=== PATIENT | female | born 1945 | race Caucasian/White ===

== ENCOUNTER 2022-07-27 11:50 | Day surgery (SDC) | payer MEDICARE ==
[2022-07-22 11:48] LABS: EOSINOPHILS # (AUTO) 0.1 X10'3 (0-0.9); EOSINOPHILS % (AUTO) 1.5 % (0-6); HEMOGLOBIN 9.3 g/dl (12.0-16.0); LYMPHOCYTES # (AUTO) 0.6 X10'3 (1.1-4.8); LYMPHOCYTES % (AUTO) 13.7 % (21-51); MEAN CORPUSCULAR HEMOGLOBIN 26.7 PG (27.0-31.0); MEAN CORPUSCULAR HGB CONC 32.2 g/dL (33.0-36.5); MEAN CORPUSCULAR VOLUME 83.1 FL (78-98); MEAN PLATELET VOLUME 9.3 FL (7.4-10.4); MONOCYTES # (AUTO) 0.5 X10'3 (0-0.9); MONOCYTES % (AUTO) 11.2 % (2-12); NEUTROPHILS # (AUTO) 3.1 X10'3 (1.8-7.7); NEUTROPHILS % (AUTO) 72.6 % (42-75); PLATELET COUNT 216 X10'3 (140-440); RED BLOOD COUNT 3.49 X10'6 (4.20-5.60); RED CELL DISTRIBUTION WIDTH 15.8 % (11.5-14.5); WHITE BLOOD COUNT 4.3 X10'3 (4.5-11.0)
[2022-07-22 12:08] LABS: ALBUMIN 2.8 G/DL (3.4-5.0); ANION GAP 9 (8-16); APTT 29 SECONDS (22-32); BLOOD UREA NITROGEN 42 MG/DL (7-18); BUN/CREATININE RATIO 17.1 (6.6-38.0); CALCIUM 8.9 MG/DL (8.5-10.1); CHLORIDE 111 MMOL/L (99-107); CHOL/HDL RATIO 6.1 (0.00-4.99); CHOLESTEROL 146 MG/DL (0-200); CREATININE 2.46 MG/DL (0.40-0.90); GLUCOSE 112 MG/DL (70-104); HDL CHOLESTEROL 24 MG/DL (35-60); LDL CHOLESTEROL 87 MG/DL (50-100); POTASSIUM 4.7 MMOL/L (3.5-5.1); SODIUM 143 MMOL/L (135-145); TOTAL CARBON DIOXIDE 22.9 MMOL/L (24-32); TRIGLYCERIDES 171 MG/DL (20-135); eGFR 19 ML/MIN
[2022-07-27] VITALS (11 sets, daily range): BP systolic 126–207; BP diastolic 50–69
[~2022-07-27] VITALS: Ht 149.9 cm; Wt 72.5 kg
[2022-07-27] MEDS ORDERED: diphenhydrAMINE 25mg capsule PO PRN (12:15)
[2022-07-27] MEDS ORDERED: normal saline 1,000 ML IV SCH (12:15)
[2022-07-27] MEDS ORDERED: LORazepam 0.5 MG tablet PO PRN (12:15)
[2022-07-27] MEDS ORDERED: ACET-812 PO (12:30)
[2022-07-27] MEDS ORDERED: NITR0.4T48 SL (12:30)
[2022-07-27] MEDS ORDERED: HYDR-4070 PO (12:30)
[2022-07-27] MEDS ORDERED: FOLI1TAB27 PO (12:30)
[2022-07-27] MEDS ORDERED: [UNRECOGNIZED DRUG - CODE] SQ (12:30)
[2022-07-27] MEDS ORDERED: FENO145T46 PO (12:30)
[2022-07-27] MEDS ORDERED: SENN-263 PO (12:30)
[2022-07-27] MEDS ORDERED: APIX5TAB3 PO (12:30)
[2022-07-27] MEDS ORDERED: TELM80TA9 (12:30)
[2022-07-27] MEDS ORDERED: ALBU18HF2 INH (12:30)
[2022-07-27] MEDS ORDERED: DULO60CA65 PO (12:30)
[2022-07-27] MEDS ORDERED: CHOL20003 (12:30)
[2022-07-27] MEDS ORDERED: GABA-530 PO (12:30)
[2022-07-27] MEDS ORDERED: CARV6.253 PO (12:30)
[2022-07-27] MEDS ORDERED: DOCU-342 PO (12:30)
[2022-07-27] MEDS ORDERED: ISOS60TA71 PO (12:30)
[2022-07-27] MEDS ORDERED: LIDOcaine 1% (10mg/ml) 2ml vial ONE (14:13)
[2022-07-27] MEDS ORDERED: verapamil 2.5 mg/ml inj IV ONE (14:13)
[2022-07-27] MEDS ORDERED: midazolam 1 mg/ML 2ml injection ONE (14:13)
[2022-07-27] MEDS ORDERED: fentaNYL/PF 50MCG/1 ML 2ML syringe ONE (14:13)
[2022-07-27] MEDS ORDERED: nitroGLYCERIN-Tridil 50MG/D5W 0 ML IV ONE (14:13)
[2022-07-27] MEDS ORDERED: heparin 1,000unit/ml 10ml vial 0 ML ONE (14:13)
[2022-07-27] MEDS ORDERED: iohexol 350MG/ML 100ml bottle IV ONE (14:14)
[2022-07-27] MEDS ORDERED: LIDOcaine 1% 30ml preserv. free vial ONE (14:21)
[2022-07-27] MEDS ORDERED: hydrALAZINE 20mg/ml inj. IV ONE ×2 (15:04→15:24)
[2022-07-27] MEDS ORDERED: hydrALAZINE 25 MG tablet PO SCH (16:03)
[2022-07-27] MEDS ORDERED: isosorbide mononitrate 30mg tab.SR.24H PO SCH (16:04)
[2022-07-27] MEDS ORDERED: HYDROcodone/acetaminophen 5mg/325mg tablet PO PRN (16:05)
[2022-07-27] MEDS ORDERED: HYDROcodone/acetaminophen 10/325mg tab PO PRN (16:05)
== END 2022-07-27 19:19 | disposition home or self-care (01) ==
LOC: SSTAY O 11:50
PROVIDERS: ATTEND Student in an Organized Health Care Education/Training Program
DX: I25.10 Atherosclerotic heart disease of native coronary artery without angina pectoris (principal); I25.82 Chronic total occlusion of coronary artery; I48.91 Unspecified atrial fibrillation; I12.9 Hypertensive chronic kidney disease with stage 1 through stage 4 chronic kidney disease, or unspecified chronic kidney disease; I35.0 Nonrheumatic aortic (valve) stenosis; J43.9 Emphysema, unspecified; K21.9 Gastro-esophageal reflux disease without esophagitis; N18.4 Chronic kidney disease, stage 4 (severe); I73.9 Peripheral vascular disease, unspecified; Z95.1 Presence of aortocoronary bypass graft; G47.33 Obstructive sleep apnea (adult) (pediatric); E78.5 Hyperlipidemia, unspecified; M19.90 Unspecified osteoarthritis, unspecified site; M81.0 Age-related osteoporosis without current pathological fracture; Z88.1 Allergy status to other antibiotic agents; Z88.5 Allergy status to narcotic agent; Z88.6 Allergy status to analgesic agent; Z88.2 Allergy status to sulfonamides; Z88.8 Allergy status to other drugs, medicaments and biological substances; Z91.010 Allergy to peanuts; Z79.51 Long term (current) use of inhaled steroids; Z79.01 Long term (current) use of anticoagulants; Z79.899 Other long term (current) drug therapy
CPT/HCPCS: 36415; 80048; 80061; 85025; 85610; 85730; 93005; 93459; 99152; 99153; C1760; C1769; C1894; J0360; J1644; J2250; J3010; J3490; J7030; Q0163; Q9967

== ENCOUNTER 2022-10-05 11:58 | Day surgery (SDC) | payer MEDICARE ==
[~2022-10-05] VITALS: Ht 149.9 cm; Wt 75.2 kg
[2022-10-05] VITALS (15 sets, daily range): BP systolic 193–205; BP diastolic 58–201
[~2022-10-05 11:58] MED LIST: ACET-812 PO; ALBU18HF2 INH; APIX5TAB3 PO; CARV6.253 PO; CHOL20003; DOCU-342 PO; DULO60CA65 PO; FENO145T46 PO; FOLI1TAB27 PO; GABA-530 PO; HYDR-4070 PO; ISOS60TA71 PO; NITR0.4T48 SL; SENN-263 PO; TELM80TA9; [UNRECOGNIZED DRUG - CODE] SQ
[2022-10-05] MEDS ORDERED: MIDAZolam 1mg/ml 10ml vial IV ONE (12:35)
[2022-10-05] MEDS ORDERED: fentaNYL/PF 50MCG/1 ML 2ML syringe IV ONE ×2 (12:35→13:06)
[2022-10-05] MEDS ORDERED: normal saline 1000ml 1,000 ML IV SCH (12:35)
[2022-10-05] MEDS ORDERED: TIOT18CA3 INH (12:45)
[2022-10-05] MEDS ORDERED: NIFE90TA61 PO (12:45)
[2022-10-05] MEDS ORDERED: BUDE10.22 (12:45)
[2022-10-05] MEDS ORDERED: PANT40TA54 (12:45)
[2022-10-05] MEDS ORDERED: EPOE10006 (12:45)
[2022-10-05] MEDS ORDERED: CETI10TA14 (12:56)
[2022-10-05] MEDS ORDERED: hyDRALAzine 10mg tablet PO ONE (16:10)
[2022-10-05] MEDS ORDERED: hydrALAZINE 25 MG tablet PO ONE (16:15)
== END 2022-10-05 17:30 | disposition home or self-care (01) ==
LOC: SSTAY O 11:58
PROVIDERS: ATTEND Student in an Organized Health Care Education/Training Program
DX: I48.91 Unspecified atrial fibrillation (principal); I08.0 Rheumatic disorders of both mitral and aortic valves; I12.9 Hypertensive chronic kidney disease with stage 1 through stage 4 chronic kidney disease, or unspecified chronic kidney disease; N18.4 Chronic kidney disease, stage 4 (severe); J44.9 Chronic obstructive pulmonary disease, unspecified; G47.33 Obstructive sleep apnea (adult) (pediatric); I25.10 Atherosclerotic heart disease of native coronary artery without angina pectoris; E78.5 Hyperlipidemia, unspecified; K21.9 Gastro-esophageal reflux disease without esophagitis; M19.90 Unspecified osteoarthritis, unspecified site; M81.0 Age-related osteoporosis without current pathological fracture; Z95.1 Presence of aortocoronary bypass graft; Z79.01 Long term (current) use of anticoagulants; Z79.899 Other long term (current) drug therapy; Z88.2 Allergy status to sulfonamides; Z88.8 Allergy status to other drugs, medicaments and biological substances; Z88.5 Allergy status to narcotic agent; Z91.010 Allergy to peanuts; Z88.1 Allergy status to other antibiotic agents
CPT/HCPCS: 82948; 93005; 93312; 93325; 94760; J2250; J3010; J7030; A4620

== ENCOUNTER 2022-11-03 14:05 | Outpatient (CLI) | payer MEDICARE ==
[~2022-11-03 14:05] MED LIST changes: +BUDE10.22 IH; -CHOL20003; +CHOL20003 PO; +DIPH25TA62 PO; -DOCU-342 PO; +DOCU100C40 PO; +EPOE10006 SQ; +FAMO40TA58 PO; +ONDA8TAB13 PO; +PANT40TA54 PO; -TELM80TA9; +TELM80TA9 PO; +TIOT18CA3 INH; -[UNRECOGNIZED DRUG - CODE] SQ
[2022-11-03 14:40] LABS: BASOPHILS % (AUTO) 1.1 % (0-1); EOSINOPHILS % (AUTO) 1.2 % (0-6); HEMATOCRIT 25.8 % (35.0-45.0); HEMOGLOBIN 7.7 g/dl (12.0-16.0); LYMPHOCYTES # (AUTO) 0.5 X10'3 (1.1-4.8); LYMPHOCYTES % (AUTO) 13.3 % (21-51); MEAN CORPUSCULAR HEMOGLOBIN 25.8 PG (27.0-31.0); MEAN CORPUSCULAR VOLUME 85.9 FL (78-98); MEAN PLATELET VOLUME 8.6 FL (7.4-10.4); MONOCYTES # (AUTO) 0.4 X10'3 (0-0.9); MONOCYTES % (AUTO) 12.3 % (2-12); NEUTROPHILS # (AUTO) 2.5 X10'3 (1.8-7.7); NEUTROPHILS % (AUTO) 72.1 % (42-75); PLATELET COUNT 245 X10'3 (140-440); RED CELL DISTRIBUTION WIDTH 16.1 % (11.5-14.5); WHITE BLOOD COUNT 3.4 X10'3 (4.5-11.0)
== END 2022-11-03 23:59 | disposition home or self-care (01) ==
LOC: RAD 14:05
PROVIDERS: ATTEND Student in an Organized Health Care Education/Training Program
DX: Z95.818 Presence of other cardiac implants and grafts (principal); I48.0 Paroxysmal atrial fibrillation
CPT/HCPCS: 36415; 85025

== ENCOUNTER 2022-11-30 12:08 | Day surgery (SDC) | payer MEDICARE ==
[~2022-11-30] VITALS: Ht 149.9 cm; Wt 71.4 kg
[2022-11-30] VITALS (9 sets, daily range): BP systolic 183–199; BP diastolic 62–78
[2022-11-30] MEDS ORDERED: MIDAZolam 1mg/ml 10ml vial IV ONE (12:35)
[2022-11-30] MEDS ORDERED: fentaNYL/PF 50MCG/1 ML 2ML syringe IV ONE (12:35)
[2022-11-30] MEDS ORDERED: normal saline 1000ml 1,000 ML IV SCH (12:35)
[2022-11-30] MEDS ORDERED: APIX5TAB3 PO (12:51)
[2022-11-30 13:32] LABS: BASOPHILS % (AUTO) 1.2 % (0-1); EOSINOPHILS % (AUTO) 0.4 % (0-6); HEMOGLOBIN 7.1 g/dl (12.0-16.0); LYMPHOCYTES # (AUTO) 0.4 X10'3 (1.1-4.8); LYMPHOCYTES % (AUTO) 13.4 % (21-51); MEAN CORPUSCULAR HEMOGLOBIN 23.6 PG (27.0-31.0); MEAN CORPUSCULAR HGB CONC 30.8 g/dL (33.0-36.5); MEAN CORPUSCULAR VOLUME 76.6 FL (78-98); MEAN PLATELET VOLUME 8.8 FL (7.4-10.4); MONOCYTES # (AUTO) 0.4 X10'3 (0-0.9); MONOCYTES % (AUTO) 15.3 % (2-12); NEUTROPHILS # (AUTO) 1.9 X10'3 (1.8-7.7); NEUTROPHILS % (AUTO) 69.7 % (42-75); PLATELET COUNT 133 X10'3 (140-440); RED CELL DISTRIBUTION WIDTH 16.3 % (11.5-14.5); WHITE BLOOD COUNT 2.8 X10'3 (4.5-11.0)
[2022-11-30 13:41] LABS: ALBUMIN 2.6 G/DL (3.4-5.0); ANION GAP 9 (8-16); BLOOD UREA NITROGEN 42 MG/DL (7-18); BUN/CREATININE RATIO 19.1 (10.0-20.0); CALCIUM 8.5 MG/DL (8.5-10.1); CHLORIDE 110 MMOL/L (99-107); GLUCOSE 105 MG/DL (70-104); POTASSIUM 3.8 MMOL/L (3.5-5.1); SODIUM 143 MMOL/L (135-145); TOTAL CARBON DIOXIDE 23.6 MMOL/L (24-32); eGFR 22 ML/MIN
[2022-11-30 14:00] LABS: ANISOCYTOSIS 1+; MICROCYTOSIS 1+; PLATELET ESTIMATE DECREASED; TOTAL CELLS COUNTED 100
[2022-11-30 14:01] LABS: HYPOCHROMASIA 2+
[2022-11-30 14:57] LABS: APTT 31 SECONDS (22-32)
== END 2022-11-30 16:00 | disposition home or self-care (01) ==
LOC: SSTAY O 12:08
PROVIDERS: ATTEND Student in an Organized Health Care Education/Training Program
DX: I48.91 Unspecified atrial fibrillation (principal); Z95.818 Presence of other cardiac implants and grafts; I34.81 Nonrheumatic mitral (valve) annulus calcification
CPT/HCPCS: 36415; 80048; 85025; 85610; 85730; 93312; 93325; 94760; C1751; J2250; J3010; J7030; 85007; A4620

== ENCOUNTER 2023-11-03 17:33 | Inpatient (IN) | payer MEDICARE ==
[~2023-11-03] VITALS: Ht 149.9 cm; Wt 61.4 kg
[~2023-11-03 17:33] MED LIST changes: -HYDR-4070 PO; +HYDR50TA46 PO
[2023-11-03] MEDS: ondansetron/PF 4mg/2ml inj IV ONE (18:00)
[2023-11-03 18:09] LABS: EOSINOPHILS % (AUTO) 1.7 % (0-6); MEAN CORPUSCULAR HGB CONC 31.5 g/dL (33.0-36.5); WHITE BLOOD COUNT 2.5 X10'3 (4.5-11.0)
[2023-11-03 18:12] LABS: BASOPHILS % (AUTO) 1.1 % (0-1); HEMATOCRIT 37.9 % (35.0-45.0); HEMOGLOBIN 11.9 g/dl (12.0-16.0); LYMPHOCYTES # (AUTO) 0.4 X10'3 (1.1-4.8); LYMPHOCYTES % (AUTO) 15.9 % (21-51); MEAN CORPUSCULAR HEMOGLOBIN 24.1 PG (27.0-31.0); MEAN CORPUSCULAR VOLUME 76.6 FL (78-98); MEAN PLATELET VOLUME 9.1 FL (7.4-10.4); MONOCYTES # (AUTO) 0.5 X10'3 (0-0.9); MONOCYTES % (AUTO) 18.7 % (2-12); NEUTROPHILS # (AUTO) 1.6 X10'3 (1.8-7.7); NEUTROPHILS % (AUTO) 62.6 % (42-75); PLATELET COUNT 177 X10'3 (140-440); RED BLOOD COUNT 4.95 X10'6 (4.20-5.60); RED CELL DISTRIBUTION WIDTH 24.9 % (11.5-14.5)
[2023-11-03 18:48] LABS: ALBUMIN 2.7 G/DL (3.4-5.0); ANION GAP 13 (8-16); BLOOD UREA NITROGEN 55 MG/DL (7-18); BUN/CREATININE RATIO 18.8 (10.0-20.0); CALCIUM 8.3 MG/DL (8.5-10.1); CHLORIDE 110 MMOL/L (99-107); CREATININE 2.92 MG/DL (0.40-0.90); POTASSIUM 4.2 MMOL/L (3.5-5.1); PRO BRAIN NATRIURETIC PEPTIDE 14529 PG/ML (0-450); SODIUM 144 MMOL/L (135-145); TOTAL CARBON DIOXIDE 21.1 MMOL/L (24-32); eCRCL 11 ML/MIN; eGFR 16 ML/MIN
[2023-11-03 18:49] LABS: GLUCOSE 208 MG/DL (70-104)
[2023-11-03] MEDS: hydrALAZINE 25 MG tablet PO ONE (20:19)
[2023-11-03] MEDS ORDERED: magnesium 2GM in 50ml NS 50 ML IV PRN (20:20)
[2023-11-03] MEDS ORDERED: acetaminophen 325mg tablet PO PRN (20:20)
[2023-11-03] MEDS ORDERED: magnesium hydroxide 30ml (MOM) UD suspension PO PRN (20:20)
[2023-11-03] MEDS ORDERED: DEXTROSE 15 GM of carb/4 tabs (each vial/BOTTLE has 4 tablets) PO PRN ×2 (20:20)
[2023-11-03] MEDS ORDERED: insulin Lispro (HumaLOG) vial - multi-dose SQ SCH (20:20)
[2023-11-03] MEDS ORDERED: dextrose 50%-water 50ml dispensing syringe IV PRN ×2 (20:20)
[2023-11-03] MEDS ORDERED: ondansetron/PF 4mg/2ml inj IV PRN (20:20)
[2023-11-03] MEDS ORDERED: magnesium 4gm in 100ml NS 100 ML IV PRN (20:20)
[2023-11-03] MEDS ORDERED: mag hydrox/Alum hydrox/simeth 30ml oral suspension PO PRN (20:20)
[2023-11-03] MEDS ORDERED: potassium Cl 40MEQ/1/2NS 520ml 520 ML IV PRN (20:20)
[2023-11-03] MEDS ORDERED: potassium Cl 20 mEq SR tablet PO PRN ×2 (20:20)
[2023-11-03] MEDS ORDERED: glucagon, human recombinant 1mg kit SUBCUT PRN (20:20)
[2023-11-03] MEDS ORDERED: magnesium Cl slow-release 64mg tablet PO PRN (20:20)
[2023-11-03] MEDS ORDERED: insulin regular, human U-100 3ml vial - multi-dose SQ SCH (20:20)
[2023-11-03] MEDS: MESSAGE TO PHARMACY PO ONE (20:25)
[2023-11-03] MEDS ORDERED: CETI10TA14 PO (20:40)
[2023-11-03] MEDS ORDERED: FURO40TA4 PO (20:40)
[2023-11-03] MEDS ORDERED: [UNRECOGNIZED DRUG - CODE] IM (20:40)
[2023-11-03] MEDS ORDERED: TELM40TA8 PO (20:40)
[2023-11-03] MEDS ORDERED: POTA-366 PO (20:40)
[2023-11-03 20:52] LABS: ANISOCYTOSIS 3+; HYPOCHROMASIA 1+; MICROCYTOSIS 1+; PLATELET ESTIMATE NORMAL; TARGET CELLS FEW; TOTAL CELLS COUNTED 100
[2023-11-03 21:00] LABS: MAGNESIUM 2.2 MG/DL (1.5-2.4); POTASSIUM 4.3 MMOL/L (3.5-5.1)
[2023-11-03] MEDS: insulin glargine (Lantus) pen - multi-dose SQ SCH (21:00)
[2023-11-03] MEDS: hydrALAZINE 20mg/ml inj. IV ONE ×2 (22:29→23:22)
[2023-11-04 00:10] VITALS: BP 203/64; PULSE 57; RESP 19; TEMP 98.5; O2SAT 99
[2023-11-04] MEDS: losartan 50mg tablet PO SCH (00:17)
[2023-11-04] MEDS: hydrALAZINE 25 MG tablet PO SCH (00:17)
[2023-11-04 04:51] LABS: BILIRUBIN,URINE NEGATIVE (Neg); CLARITY,URINE SLIGHTLY CLOUDY (Clear); COLOR,URINE YELLOW (Yellow); GLUCOSE, URINE NEGATIVE (Neg); KETONES,URINE NEGATIVE (Neg); LEUKOCYTE ESTERASE ,URINE MODERATE (Neg); NITRITES, URINE NEGATIVE (Neg); OCCULT BLOOD,URINE NEGATIVE (Neg); PROTEIN,URINE TRACE mg/dl (Neg); UROBILINOGEN,URINE 0.2 E.U/dL (0.2-1.0)
[2023-11-04 04:55] LABS: UA COLLECTION TYPE NON-SPECIFIED
[2023-11-04 04:56] LABS: MUCUS STRANDS NONE SEEN /LPF (Neg); SQUAMOUS EPITHELIAL CELL,UR MANY /LPF (FEW)
[2023-11-04 04:57] LABS: BACTERIA,URINE 2+ /HPF (Neg); TRANSITIONAL EPI CELLS,URINE FEW /HPF; WBC CLUMPS,URINE FEW /HPF (NEGATIVE)
[2023-11-04] MEDS: spironolactone 25 MG tablet PO SCH (05:00)
[2023-11-04] MEDS: amLODIPine 5mg tablet PO SCH (05:01)
[2023-11-04 06:00] VITALS: BP 144/57; PULSE 65; RESP 19; TEMP 97.4; O2SAT 95
[2023-11-04 06:45] LABS: BASOPHILS % (AUTO) 1.3 % (0-1); EOSINOPHILS # (AUTO) 0.1 X10'3 (0-0.9); EOSINOPHILS % (AUTO) 1.6 % (0-6); HEMATOCRIT 34.7 % (35.0-45.0); HEMOGLOBIN 10.8 g/dl (12.0-16.0); LYMPHOCYTES # (AUTO) 0.5 X10'3 (1.1-4.8); LYMPHOCYTES % (AUTO) 15.1 % (21-51); MEAN CORPUSCULAR HEMOGLOBIN 23.6 PG (27.0-31.0); MEAN CORPUSCULAR VOLUME 76.2 FL (78-98); MEAN PLATELET VOLUME 8.6 FL (7.4-10.4); MONOCYTES # (AUTO) 0.6 X10'3 (0-0.9); NEUTROPHILS # (AUTO) 2.3 X10'3 (1.8-7.7); PLATELET COUNT 188 X10'3 (140-440); RED BLOOD COUNT 4.56 X10'6 (4.20-5.60); RED CELL DISTRIBUTION WIDTH 25.1 % (11.5-14.5); WHITE BLOOD COUNT 3.5 X10'3 (4.5-11.0)
[2023-11-04 07:01] LABS: APTT 29 SECONDS (22-32); INR 1.2 INR
[2023-11-04 07:38] LABS: ALBUMIN 2.3 G/DL (3.4-5.0); ALBUMIN/GLOBULIN RATIO 0.7 (1.1-1.5); ALKALINE PHOSPHATASE 61 IU/L (46-116); ANION GAP 12 (8-16); ASPARTATE AMINO TRANSFERASE 17 U/L (10-37); BILIRUBIN,TOTAL 0.6 MG/DL (0.1-1.0); BLOOD UREA NITROGEN 59 MG/DL (7-18); CALCIUM 8.3 MG/DL (8.5-10.1); CHLORIDE 111 MMOL/L (99-107); CHOL/HDL RATIO 5.8 (0.00-4.99); CHOLESTEROL 127 MG/DL (0-200); CREATININE 2.95 MG/DL (0.40-0.90); FERRITIN 48 NG/ML (8-252); HDL CHOLESTEROL 22 MG/DL (35-60); LDL CHOLESTEROL 78 MG/DL (50-100); PHOSPHORUS 4.6 MG/DL (2.3-4.5); POTASSIUM 4.3 MMOL/L (3.5-5.1); SODIUM 144 MMOL/L (135-145); TOTAL CARBON DIOXIDE 21.1 MMOL/L (24-32); TOTAL PROTEIN 5.7 G/DL (6.4-8.2); TRIGLYCERIDES 130 MG/DL (20-135); eCRCL 11 ML/MIN; eGFR 15 ML/MIN
[2023-11-04 07:43] LABS: ALANINE AMINOTRANSFERASE < 6 U/L (12-78); GLUCOSE 111 MG/DL (70-104)
[2023-11-04] MEDS ORDERED: amLODIPine 5mg tablet PO ONE (08:00)
[2023-11-04] MEDS ORDERED: K and/or MAG REPLACEMENT MC SCH (08:00)
[2023-11-04] MEDS ORDERED: docusate sod 100mg capsule PO SCH (08:00)
[2023-11-04] MEDS ORDERED: albuterol 2.5 MG/3 ML nebule NEB PRN (08:10)
[2023-11-04 08:13] LABS: ANISOCYTOSIS 3+; HYPOCHROMASIA 1+; MICROCYTOSIS 1+; PLATELET ESTIMATE NORMAL; SMUDGE CELLS 1+; TOTAL CELLS COUNTED 100
[2023-11-04 08:14] LABS: TARGET CELLS FEW
[2023-11-04] MEDS: albuterol 2.5 MG/3 ML nebule NEB SCH (09:00)
[2023-11-04] MEDS: budesonide 0.5mg/2ml UD nebule IH SCH (09:00)
[2023-11-04] MEDS: furosemide 40mg/4ml inj IV SCH (09:32)
[2023-11-04] MEDS: heparin, porcine 5000 units/ml vial SQ SCH (09:33)
[2023-11-04] MEDS: duloxetine 30mg CAPSULE.DR PO SCH (09:44)
[2023-11-04 11:00] VITALS: BP 159/70; PULSE 62; RESP 19; TEMP 97.8; O2SAT 93
[2023-11-04] MEDS ORDERED: NOR5T PO (11:32)
[2023-11-04] MEDS ORDERED: FURO40TA4 PO (11:32)
[2023-11-04] MEDS ORDERED: non-formulary drug (Budesonide/Formoterol Fumarate (Symbicort 80-4.5 Mcg Inhaler) 2 PUFFS) IH SCH (20:00)
[2023-11-04] MEDS ORDERED: gabapentin 100mg capsule PO SCH (21:00)
[2023-11-05] MEDS ORDERED: pantoprazole 40mg Tablet.DR PO SCH (08:00)
[2023-11-05] MEDS ORDERED: non-formulary drug (Famotidine 1 TAB) PO SCH (08:00)
[2023-11-05] MEDS ORDERED: fenofibrate 145mg tablet PO SCH (08:00)
== END 2023-11-04 12:30 | disposition home or self-care (01) | DRG 280 ==
LOC: ER 17:35 → ED HOLD 20:23 → PCU 3S 23:58
PROVIDERS: ADMIT Internal Medicine Critical Care Medicine; ATTEND Internal Medicine
DX: I16.1 Hypertensive emergency (principal); I21.A1 Myocardial infarction type 2; I50.33 Acute on chronic diastolic (congestive) heart failure; N18.4 Chronic kidney disease, stage 4 (severe); I13.0 Hypertensive heart and chronic kidney disease with heart failure and stage 1 through stage 4 chronic kidney disease, or unspecified chronic kidney disease; G47.30 Sleep apnea, unspecified; D72.819 Decreased white blood cell count, unspecified; I48.91 Unspecified atrial fibrillation; E78.5 Hyperlipidemia, unspecified; M79.7 Fibromyalgia; E11.22 Type 2 diabetes mellitus with diabetic chronic kidney disease; J44.9 Chronic obstructive pulmonary disease, unspecified; Z95.1 Presence of aortocoronary bypass graft; I25.2 Old myocardial infarction; Z88.2 Allergy status to sulfonamides; Z88.8 Allergy status to other drugs, medicaments and biological substances; Z88.6 Allergy status to analgesic agent; Z88.1 Allergy status to other antibiotic agents; Z88.5 Allergy status to narcotic agent; Z91.010 Allergy to peanuts; Z79.01 Long term (current) use of anticoagulants; Z79.899 Other long term (current) drug therapy
CPT/HCPCS: 36415; 70450; 71045; 80048; 80053; 80061; 81001; 82728; 82948; 83036; 83540; 83735; 83880; 84100; 84132; 84466; 84484; 85007; 85025; 85610; 85730; 87081; 87088; 93005; 93306; 93971; 99285; G0378; J0360; J1644; J1940

== ENCOUNTER 2025-01-31 20:06 | Inpatient (IN) | payer MEDICARE ==
[~2025-01-31] VITALS: Ht 149.9 cm; Wt 70.0 kg
[~2025-01-31 20:06] MED LIST changes: -ACET-812 PO; -ALBU18HF2 INH; +AMLO10TA13 PO; -APIX5TAB3 PO; +ASPI81TA52 PO; +ATOR20TA PO; -BUDE10.22 IH; -CARV6.253 PO; -DIPH25TA62 PO; -DOCU100C40 PO; -DULO60CA65 PO; -EPOE10006 SQ; +HYDR100T12 PO; -HYDR50TA46 PO; +METO-395 PO; -NITR0.4T48 SL; -ONDA8TAB13 PO; -PANT40TA54 PO; -SENN-263 PO; -TELM80TA9 PO; -TIOT18CA3 INH
--- NOTE | 2025-01-31 20:17 | ELECTROCARDIOGRAPH REPORT ---
[facility] Test Date: 2025-01-31 Test Time: 20:07:52 Pat Name: ANGELICA JUSTICE Department: EMERGENCY ROOM Room: Gender: F Pattern Cutter: : 1945 Requested By: MALATHI COOPER Order Number: [id number] Reading MD: Measurements Intervals [place] Rate: 67 P: 174 MT: 220 QRS: 44 QRSD: 87 T: 125 QT: 410 QTc: 433 Interpretive Statements Sinus or ectopic atrial rhythm Prolonged MT interval Repol abnrm suggests ischemia, lateral leads Minimal ST elevation, inferior leads Please click the below link to view image of tracing.
--- NOTE | 2025-01-31 20:34 | Physician Documentation ---
History of Present Illness ~ Chief Complaint: Chest Pain Stated Complaint: CHEST PAIN Time Seen by MD: 20:29 Primary Medical Doctor: Todd alcantar MD Source: patient Mode of Arrival: POV Exam Limitations: no limitations HPI Patient with a history of 3 heart attacks, 4-6 cardiac stents and 4 vessel bypass in with chest pain for the last 3 days. She states it is on her left side and wraps under her left breast and goes into her back. She states it feels like there is a band around her chest. She rates it 8/10. It is intermittent. When it comes on it lasts for 30-60 minutes. She states most of her cardiology problems were several years ago. Her CABG was in 2008. Last echocardiogram was 2 years ago. She states it hurts to take a deep breath. She feels nauseous. She takes aspirin every day but did not take any today. Also has a history of heart failure for which she takes Lasix 20 mg daily. No history of smoking, drug or alcohol use. She does have diabetes and gets dialysis. Last dialysis was yesterday on Tuesday. History of AFib. Medication Reconciliation Allergies: Coded Allergies: JERRY Inhibitors (Verified Allergy, Unknown, 01/31/25) azithromycin (Verified Allergy, Unknown, 01/31/25) clarithromycin (Verified Allergy, Unknown, 01/31/25) gemfibrozil (Verified Allergy, Unknown, 01/31/25) hydrocodone (Verified Allergy, Unknown, PASSES OUT, 01/31/25) inositol (Verified Allergy, Unknown, 01/31/25) meperidine (Verified Allergy, Unknown, 07/27/22) niacin (Verified Allergy, Unknown, 07/27/22) nitrofurantoin (Verified Allergy, Unknown, 07/27/22) oxycodone (Verified Allergy, Unknown, 07/27/22) peanut (Verified Allergy, Unknown, 07/27/22) phenobarbital (Verified Allergy, Unknown, 07/27/22) polyethylene glycol (Verified Allergy, Unknown, 07/27/22) potassium (Verified Allergy, Unknown, 07/27/22) propoxyphene (Verified Allergy, Unknown, 07/27/22) sulfanilamide (Verified Allergy, Unknown, 07/27/22) tramadol (Verified Allergy, Unknown, 07/27/22) NSAIDS (Non-Steroidal Anti-Inflamma (Verified Adverse Reaction, Unknown, DOES NOT FEEL WELL, 10/20/22) amoxicillin (Verified Adverse Reaction, Unknown, DIARRHEA, 10/20/22) cimetidine (Verified Adverse Reaction, Unknown, 10/20/22) PT CAN TAKE FAMOTIDINE AND ALREADY TAKES IT AT HOME Scheduled Amlodipine Besylate (Amlodipine Besylate), 1 TAB PO DAILY, (Reported) Aspirin (Aspirin EC), 1 TAB PO DAILY, (Reported) Atorvastatin Calcium* (Lipitor*), 1 TAB PO DAILY, (Reported) Cholecalciferol (Vitamin D3) (Vitamin D3), 1 TAB PO DAILY, (Reported) Famotidine (Famotidine), 1 TAB PO DAILY, (Reported) Fenofibrate Nanocrystallized (Tricor), 1 TAB PO DAILY, (Reported) Folic Acid* (Folic Acid*), 1 MG PO DAILY, (Reported) Gabapentin (Gabapentin), 1 CAP PO HS, (Reported) Hydralazine HCl (Hydralazine HCl), 1 TAB PO BID, (Reported) Isosorbide Mononitrate (Isosorbide Mononitrate Er), 1 TAB PO BID, (Reported) Metoprolol Succinate (Metoprolol Succinate), 25 MG PO DAILY Past Medical History Past Medical History: Atrial Fibrillation, Coronary Artery Disease, Congestive Heart Failure, Hypertension, Myocardial Infarction, Asthma, COPD, Sleep Apnea, GERD, Renal Disease, Diabetes, Chronic Pain, Fibromyalgia Past Surgical History: coronary bypass surgery, other Other Past Surgical History: stents Patient History: FH: stroke Alcohol Use: None Drug Use: none Lives with: Family Lives In: Home Review of Systems All Other Systems at this time: Reviewed and Negative Physical Exam Vital Signs: Temperature: 98.6, Source: Temporal, Heart Rate: 70, Respiratory Rate: 15, BP: 145/65, Pulse Oximetry: 96, Weight: 70.000 Physical Exam General: Alert and oriented x4, well-appearing, well-nourished, no acute distress HEENT: Normocephalic, atraumatic, no visible or palpable masses or depression, extraocular movements intact, PERRLA, no scleral icterus, neck is supple and nontender, mucous membranes moist Heart: Regular rate and rhythm, no murmurs, rubs or gallops Lungs: Clear to auscultation bilaterally, normal work of breathing Abdomen: Soft, nontender, no palpable masses, normal bowel sounds Back: Spine is without deformity or tenderness, no CVA tenderness Extremities: Full range of motion, no acute deformity, peripheral pulses intact, no cyanosis or edema Musculoskeletal: Normal gait, normal tone Neurologic: Cranial nerves 2-12 are intact, reflexes normal Psychiatric: Alert and oriented x4, judgment and insight normal, normal mood and affect Skin: Good turgor, no rashes Progress Results/Orders Results/Orders Orders - MALATHI COOPER MD Chest,Single View (01/31/25 20:16) Monitor (01/31/25 20:16) Saline Lock (01/31/25 20:16) Oxygen (01/31/25 20:16) Hs Troponin I W Calculations (01/31/25 22:16) Hs Troponin I W Calculations (01/31/25 23:16) Nitroglycerin Sublingual Tab (Nitrostat (01/31/25 20:40) Completed Orders - MALATHI COOPER MD Chest,Single View (01/31/25 20:16) Cbc/Diff (01/31/25 20:16) BMP (01/31/25 20:16) PBNP (01/31/25 20:16) Electrocardiogram (01/31/25 20:16) Hs Troponin I W Calculations (01/31/25 20:16) Aspirin 81mg Chew Tablet (Aspirin 81mg C (01/31/25 20:30) Lidocaine 1% 30ml Vial (Xylocaine 1% Via (01/31/25 20:52) Midazolam 1 Mg/Ml 2ml Inj. (Versed 1 Mg/ (01/31/25 20:52) Fentanyl/Pf (Fentanyl 0.05 Mg/Ml Syringe (01/31/25 20:52) Iohexol 350mg/Ml 50ml Inj (Omnipaque 350 (01/31/25 20:52) Heparin 1,000unit/Ml 10ml Vial (Heparin (01/31/25 20:52) Iohexol 350mg/Ml 100ml (Omnipaque 350mg/ (01/31/25 20:53) Heparin 1,000 Units/Ns 500ml (Heparin 1, (01/31/25 20:53) Midazolam 1 Mg/Ml 2ml Inj. (Versed 1 Mg/ (01/31/25 21:18) Iohexol 350mg/Ml 100ml (Omnipaque 350mg/ (01/31/25 21:18) Hydralazine Inj. (Apresoline Inj.) (01/31/25 21:25) Nitroglycerin 500mcg/5ml D5w (Nitroglyce (01/31/25 21:25) Nitroglycerin-Tridil 50mg/D5w (Tridil (N (01/31/25 21:43) Medications Received in ER Medications (Trade) Dose Ordered Sig/Ricardo Route PRN Reason Start Time Stop Time Status Last Admin Dose Admin (aspirin 81MG chew tablet) 324 mg ONCE ONCE PO 01/31/25 20:30 01/31/25 20:31 DC 01/31/25 20:39 324 MG Vital Signs 01/31/25 20:13 Temp 98.6 Pulse 70 Resp 15 B/P (MAP) 145/65 Pulse Ox 96 Laboratory Tests Test 01/31/25 20:34 White Blood Count 7.1 Red Blood Count 5.50 Hemoglobin 15.3 Hematocrit 45.8 H Mean Corpuscular Volume 83.2 Mean Corpuscular Hemoglobin 27.9 Mean Corpuscular Hemoglobin Concent 33.5 Red Cell Distribution Width 15.9 H Platelet Count 197 Mean Platelet Volume 7.6 Neutrophils (%) (Auto) 72.0 Lymphocytes (%) (Auto) 10.8 L Monocytes (%) (Auto) 15.4 H Eosinophils (%) (Auto) 1.3 Basophils (%) (Auto) 0.5 Neutrophils # (Auto) 5.1 Lymphocytes # (Auto) 0.8 L Monocytes # (Auto) 1.1 H Eosinophils # (Auto) 0.1 Basophils # (Auto) 0.0 CBC Comment Sodium Level 139 Potassium Level 5.2 H Chloride Level 99 Carbon Dioxide Level 29.1 Anion Gap 11 Blood Urea Nitrogen 48 H Creatinine 4.85 H Estimated GFR/1.73 m2 9 BUN/Creatinine Ratio 9.9 L Glucose Level 137 H Calcium Level 9.2 Troponin I High Sensitivity 79 *H Pro-B-Type Natriuretic Peptide 7192 H Albumin 3.2 L Chemistry Comments Medical Decision Making Additional Information Differential includes but isn't limited to: Myocardial infarction, pneumonia, pneumothorax, tamponade, dissection, GERD, pleurisy, costochondritis Departure Admitted to Inpatient Unit: yes, to chief librarian music department Admission Level of Care: PCU with Tele Impression: Primary Impression: Acute coronary syndrome Additional Impression Text EKG: Sinus rhythm, rate of 67, ST-elevation in lead 3, questionable elevation AVF, QTC 433, T-wave inversion aVL Patient in with chest pain for several days. Significant cardiac history. EKG concerning for possible ST-elevation. Lead [address] elevation and AVF is borderline elevated. No prior EKG for comparison. Initial troponin came back elevated. Patient does get dialysis so this is in the setting of elevated creatinine. Given her history patient was taken directly to the optical lab technician. Given aspirin in the ED prior to optical lab technician. Admitted under Dr. Rondon. Patient was stable on admission. Condition: Stable Referrals: NO PRIMARY CARE PROVIDER (PCP) Signature Scribe Signature: No scribe Attestation: No scribe MALATHI COOPER MD Jan 31, 2025 20:34
[2025-01-31] MEDS: aspirin 81mg tab.chew PO ONE (20:39)
[2025-01-31] MEDS ORDERED: nitroGLYCERIN 0.4mg SUBLingual tab SL PRN (20:40)
[2025-01-31 20:49] LABS: BASOPHILS % (AUTO) 0.5 % (0-1); EOSINOPHILS # (AUTO) 0.1 X10'3 (0-0.9); EOSINOPHILS % (AUTO) 1.3 % (0-6); HEMATOCRIT 45.8 % (35.0-45.0); HEMOGLOBIN 15.3 g/dl (12.0-16.0); LYMPHOCYTES # (AUTO) 0.8 X10'3 (1.1-4.8); LYMPHOCYTES % (AUTO) 10.8 % (21-51); MEAN CORPUSCULAR HEMOGLOBIN 27.9 PG (27.0-31.0); MEAN CORPUSCULAR HGB CONC 33.5 g/dL (33.0-36.5); MEAN CORPUSCULAR VOLUME 83.2 FL (78-98); MEAN PLATELET VOLUME 7.6 FL (7.4-10.4); MONOCYTES # (AUTO) 1.1 X10'3 (0-0.9); MONOCYTES % (AUTO) 15.4 % (2-12); NEUTROPHILS # (AUTO) 5.1 X10'3 (1.8-7.7); PLATELET COUNT 197 X10'3 (140-440); RED CELL DISTRIBUTION WIDTH 15.9 % (11.5-14.5); WHITE BLOOD COUNT 7.1 X10'3 (4.5-11.0)
[2025-01-31] MEDS ORDERED: heparin 1,000unit/ml 10ml vial 10 ML ONE (20:52)
[2025-01-31] MEDS ORDERED: iohexol 350 MG/ML 50ML vial IV ONE (20:52)
[2025-01-31] MEDS ORDERED: fentaNYL/PF 50MCG/1 ML 2ML syringe ONE (20:52)
[2025-01-31] MEDS ORDERED: LIDOcaine 1% 30ml preserv. free vial ONE (20:52)
[2025-01-31] MEDS ORDERED: midazolam 1 mg/ML 2ml injection ONE ×2 (20:52→21:18)
[2025-01-31] MEDS ORDERED: iohexol 350MG/ML 100ml bottle IV ONE ×2 (20:53→21:18)
[2025-01-31 21:04] LABS: ALBUMIN 3.2 G/DL (3.4-5.0); ANION GAP 11 (8-16); BLOOD UREA NITROGEN 48 MG/DL (7-18); BUN/CREATININE RATIO 9.9 (10.0-20.0); CALCIUM 9.2 MG/DL (8.5-10.1); CHLORIDE 99 MMOL/L (99-107); CREATININE 4.85 MG/DL (0.40-0.90); POTASSIUM 5.2 MMOL/L (3.5-5.1); PRO BRAIN NATRIURETIC PEPTIDE 7192 PG/ML (0-450); SODIUM 139 MMOL/L (135-145); TOTAL CARBON DIOXIDE 29.1 MMOL/L (24-32); eCRCL 7 ML/MIN; eGFR 9 ML/MIN
[2025-01-31 21:07] LABS: GLUCOSE 137 MG/DL (70-104)
--- NOTE | 2025-01-31 21:13 | RADIOLOGY REPORT ---
EXAM: DI CHEST,SINGLE VIEW TECHNIQUE: Single frontal chest radiograph CLINICAL HISTORY: CP COMPARISON: DI CHEST,SINGLE VIEW on DOS: 07/02/24, DI CHEST,SINGLE VIEW on DOS: 02/12/24, DI CHEST,SIN GLE VIEW on DOS: 01/29/24 Findings/Impression: Frontal chest radiograph demonstrates no acute osseous or superficial soft tissue abnormalities. Tunneled right-sided HD catheter terminates near the superior cavoatrial junction. The trachea is midline. Cardiomegaly with pulmonary vascular congestion. No pneumothorax, pleural effusions, or consolidations.
[2025-01-31] MEDS ORDERED: nitroGLYCERIN 500mcg/5mL D5W 0 ML IV ONE (21:25)
[2025-01-31] MEDS ORDERED: hydrALAZINE 20mg/ml inj. ONE (21:25)
[2025-01-31] MEDS ORDERED: nitroGLYCERIN-Tridil 50MG/D5W 250 ML IV ONE (21:43)
--- NOTE | 2025-01-31 21:45 | HISTORY AND PHYSICAL ---
ADMIT DATE: 01/31/2025 DICTATING PHYSICIAN: LUIS MARIANO DO CHIEF COMPLAINT: Chest pain. HISTORY OF PRESENT ILLNESS: This 79-year-old woman has a known history of coronary artery disease. She is status post four-vessel CABG in late 09/2008. The surgery was performed at [facility] by Dr. Ba. In 09/2022, she presented to [facility] with chest pain, thought to represent a myocardial infarction. She was transferred to [facility] in [place] and was there for a week, but says that she did not have any diagnostic angiography or percutaneous intervention. This evening, she presented to the emergency room with recurring left chest pain that has been present, although intermittently since 01/28/2025. She describes a sharp or pressure pain beneath the left breast that radiates through to the back. At the present time, she is still complaining of chest discomfort and she has ECG changes that are somewhat equivocal, but strongly suggestive of coronary ischemia. PAST MEDICAL HISTORY: She has a large list of allergies, which is going to be detailed separately. She also has a long medical list, which is also detailed separately. Previous surgeries include low back procedure, cholecystectomy, BRANT and BSO, with incidental appendectomy and tonsillectomy as a child. Other medical problems include a greater than 20-year history of diabetes. She has chronic kidney disease to the point that she has been receiving hemodialysis for 3 months. She has had 3 separate episodes of pancreatitis. There is a longstanding history of reactive airways disease. SOCIAL HISTORY: Never been a smoker and does not consume alcoholic beverages. FAMILY HISTORY: Mother at age 83 from heart disease and pulmonary embolism post bypass surgery. Father at age 63 from heart disease. A sister at age 45 from a myocardial infarction and a niece at age 52 from an [place]. REVIEW OF SYSTEMS: Otherwise unremarkable. PHYSICAL EXAMINATION: VITAL SIGNS: Blood pressure is 138/86, heart rate was 70. GENERAL: The patient was an alert, cooperative woman who did not seem to be in marked discomfort. She was an excellent historian. HEENT: Pupils reactive to light. Extraocular muscles intact. NECK: No JVD. No carotid bruits. CHEST: On examination of the chest, both lung nugent were clear. CARDIAC: Apical impulse not displaced. First and second heart sounds single. There is a grade 2/6 systolic ejection murmur best heard at the right upper sternal border. No gallops. ABDOMEN: Soft and nontender. EXTREMITIES: No edema. Foot pulses are difficult to palpate. There is a temporary dialysis catheter in the right jugular venous system. ECG demonstrates sinus rhythm with first-degree AV block. There were nonspecific ST-T changes with T inversion in leads 1 in AVL. There was slight ST elevation in leads 3 and AVF, but the ST-T segments were not coved upward segments. No ectopy. ASSESSMENT: * Chest pain of uncertain etiology but quite possibly angina in a patient with known long history of ischemic heart disease. * Status post 4-vessel CABG in 2008. Other medical problems include chronic kidney disease on dialysis, history of recurrent pancreatitis, degenerative joint disease, and diabetes known for more than 20 years. RECOMMENDATION: Cardiac catheterization. She is very familiar with the procedure, having had it done for multiple occasions before today. Nevertheless, I reviewed the risks and benefits and she agreed to proceed. LUIS MARIANO DO TID: [id number] RECEIPT: [id number] JOHN/LULY/YANELY MTDD
[2025-01-31 22:15] VITALS: BP 130/56; PULSE 90; RESP 17
[2025-01-31 22:45] VITALS: BP 146/57; PULSE 88; RESP 20
[2025-01-31 23:00] VITALS: BP 146/57; PULSE 89; RESP 22
--- NOTE | 2025-01-31 23:00 | CARDIOLOGY REPORT ---
DATE OF SERVICE: 01/31/2025 DICTATING PHYSICIAN: LUIS MARIANO DO CARDIAC CATHETERIZATION REPORT REFERRING PHYSICIAN: Luis Mariano DO CLINICAL HISTORY: This 79-year-old woman presented to the Emergency Room with complaints of off and on chest pain beginning on 01/28/2025. Pain is localized under the left breast with radiation to the back. Symptoms occur at random and are not necessarily associated with exertion. The patient has a long history of coronary disease with a prior 4-vessel bypass surgery in 09/2008. She also thinks that she had a myocardial infarction in 09/2022. She was worked up for the problem at [facility] in [place] but did not have a cardiac catheterization. The patient says that she has had many cardiac catheterization procedures and her subsequent angiography has demonstrated extensive stenting in multiple areas. Her initial troponin was 79, which is considered inconsequential. Nevertheless, because of her history and equivocal changes on the ECG, a cardiac catheterization was performed. PROCEDURES PERFORMED: * Left heart catheterization * Left ventriculography * Selective coronary arteriography. * Selective opacification of bypass grafts. * Percutaneous arteriotomy closure (Mynx) in 45 minutes conscious sedation and supervision. DESCRIPTION OF PROCEDURE: The patient was sedated with Fentanyl and Versed. She was then prepared and draped in the usual manner. Using a Seldinger technique, a 7-Dominican sheath was placed in the right common femoral artery. 3,000 units of heparin were given. Left heart catheterization and left ventriculography were performed using a 6-Dominican pigtail catheter. Coronary arteriography was performed using 6-Dominican #4 left and right Adelina catheters. All saphenous vein grafts were opacified using the #4 right Adelina catheter. There was a protracted effort to enter the left subclavian artery with the #4 right Adelina catheter but efforts were repeatedly unsuccessful. Multiple flush injections did not demonstrate any flow into the subclavian artery. The arterial access site was successfully closed with a Mynx device. RESULTS: HEMODYNAMIC DATA: The left ventricular end diastolic pressure was 15 mmHg. There was no gradient across the aortic valve. LEFT VENTRICULOGRAM: The left ventriculogram was technically satisfactory. The estimated LVEF was at least 75%. Stents were visible in the proximal LAD and in the circumflex and right coronary arteries. This patient also has a Watchman in place. CORONARY ARTERIOGRAPHY: The coronary arteriograms are technically satisfactory. The patient appears to have a right dominant system. LEFT MAIN CORONARY ARTERY: The left main was a large vessel narrowed by about 20% to 30% before trifurcating into left anterior descending, intermediate and circumflex coronary arteries. LEFT ANTERIOR DESCENDING CORONARY ARTERY: The LAD was a small to medium-sized vessel that did not appear to have a transapical distribution. A stent was visible in the proximal vessel. In the mid vessel, there was a 95% stenosis. A large bifurcated diagonal was then tented up and the remains of a previous bypass graft were partially filled. There was a very short segment of the mid LAD that exhibited phasic flow due to the presence of a known SHEEHAN graft. INTERMEDIATE ARTERY: The intermediate artery was a medium-sized unobstructed vessel. CIRCUMFLEX CORONARY ARTERY: The circumflex appeared to be a large vessel. It was functionally occluded but jump collaterals provided filling of the more distal circumflex, which was composed of a medium-sized bifurcated obtuse marginal and a small posterior descending branch. The obtuse marginal was tented up reflecting a previous anastomosis to a saphenous vein graft. RIGHT CORONARY ARTERY: The right coronary was a small to medium-sized vessel that was totally occluded proximally just after the takeoff of acute marginal branch. SELECTIVE OPACIFICATION OF BYPASS GRAFTS: 2 saphenous vein grafts leading to the left coronary system were occluded. These were to the principal LAD diagonal and to the LCX OMB. A saphenous vein graft leading to the right coronary is patent and appear to be narrowed by about 40% but most likely it is normal in size as the segment in question is proceeded by an area of ectasia in the vein. The SVG was anastomosed very close to the posterior descending branch which was a medium to large vessel. The distal right coronary was composed of 2 small posterolateral branches. There was a protracted effort to opacify the left internal mammary graft but consistent efforts were unsuccessful in getting into the left subclavian artery. The area around the subclavian artery ostium is heavily calcified. A left heart catheterization last performed in 2022 was reviewed. That study demonstrated no appreciable change in the findings from this study. The saphenous vein graft status was exactly the same. There was opacification of the left internal mammary artery which was large and widely patent. . CONCLUSIONS: 1. Obstructive coronary artery disease, principally manifested as follows: A. 90% to 95% stenosis mid LAD. B. 100% functional occlusion of the circumflex coronary artery. C. Occluded proximal right coronary artery. 2. Bypass graft status as follows: Saphenous vein graft leading to what appeared to be a diagonal branch of the LAD is occluded. Another saphenous vein graft to a circumflex marginal branch is occluded. Saphenous vein graft leading to the distal right coronary is patent and not unobstructed. 3. Left internal mammary graft was not seen at this time but was found to be patent in 2022. Absence of an anteroseptal wall motion abnormality and pusatile flow in the mild LAD militate in favor of SHEEHAN patency. 4. Left ventricular function was normal. LVEF was at least 75%. RECOMMENDATIONS: Recommendation is ongoing medical therapy with management of hypertension, which was not controlled at the time of her presentation. She will have serial cardiac enzymes; but at the present time, this patient does not appear to be a STEMI patient and it is believed that there is no significant change in her coronary and graft status from a previous study in 2022. LUIS MARIANO DO TID: [id number] RECEIPT: [id number] RP/SKYE cc: Roman Calderon MD MTDShoshana
[2025-01-31 23:30] VITALS: BP 123/58; PULSE 89; RESP 22
[2025-02-01] VITALS (9 sets, daily range): BP systolic 121–150; BP diastolic 56–78; PULSE 66–94; RESP 18–28; TEMP 97.3–98.8; O2SAT 97–98
[2025-02-01] MEDS ORDERED: TRAM50TA2 PO (00:20)
[2025-02-01] MEDS ORDERED: TRAZ-251 PO (00:20)
[2025-02-01] MEDS ORDERED: normal saline 1000ml 1,000 ML IV SCH (06:50)
[2025-02-01] MEDS ORDERED: ondansetron/PF 4mg/2ml inj IV PRN (06:50)
[2025-02-01] MEDS ORDERED: proCHLORperazine 10 MG/2 ml inj IV PRN (06:55)
[2025-02-01] MEDS: nitroGLYCERIN-Tridil 50MG/D5W 250 ML IV SCH ×2 (07:05)
[2025-02-01] MEDS ORDERED: aspirin 81mg tab.chew ONE (08:00)
[2025-02-01 08:01] LABS: BASOPHILS # (AUTO) 0.1 X10'3 (0-0.2); BASOPHILS % (AUTO) 0.9 % (0-1); EOSINOPHILS # (AUTO) 0.1 X10'3 (0-0.9); EOSINOPHILS % (AUTO) 0.9 % (0-6); HEMATOCRIT 42.6 % (35.0-45.0); HEMOGLOBIN 14.2 g/dl (12.0-16.0); LYMPHOCYTES # (AUTO) 0.7 X10'3 (1.1-4.8); LYMPHOCYTES % (AUTO) 10.3 % (21-51); MEAN CORPUSCULAR HEMOGLOBIN 27.7 PG (27.0-31.0); MEAN CORPUSCULAR HGB CONC 33.5 g/dL (33.0-36.5); MEAN CORPUSCULAR VOLUME 82.8 FL (78-98); MEAN PLATELET VOLUME 7.3 FL (7.4-10.4); MONOCYTES % (AUTO) 15.3 % (2-12); NEUTROPHILS # (AUTO) 4.9 X10'3 (1.8-7.7); NEUTROPHILS % (AUTO) 72.6 % (42-75); PLATELET COUNT 200 X10'3 (140-440); RED BLOOD COUNT 5.14 X10'6 (4.20-5.60); RED CELL DISTRIBUTION WIDTH 16.6 % (11.5-14.5); WHITE BLOOD COUNT 6.7 X10'3 (4.5-11.0)
[2025-02-01 08:14] LABS: ALANINE AMINOTRANSFERASE 12 U/L (12-78); ALBUMIN 2.7 G/DL (3.4-5.0); ALBUMIN/GLOBULIN RATIO 0.8 (1.1-1.5); ALKALINE PHOSPHATASE 136 IU/L (46-116); ANION GAP 11 (8-16); ASPARTATE AMINO TRANSFERASE 21 U/L (10-37); BILIRUBIN,TOTAL 0.6 MG/DL (0.1-1.0); BLOOD UREA NITROGEN 47 MG/DL (7-18); BUN/CREATININE RATIO 9.4 (10.0-20.0); CALCIUM 8.7 MG/DL (8.5-10.1); CHLORIDE 101 MMOL/L (99-107); CREATININE 5.02 MG/DL (0.40-0.90); POTASSIUM 5.2 MMOL/L (3.5-5.1); SODIUM 136 MMOL/L (135-145); TOTAL CARBON DIOXIDE 24.3 MMOL/L (24-32); TOTAL PROTEIN 6.3 G/DL (6.4-8.2); eCRCL 6 ML/MIN; eGFR 8 ML/MIN
[2025-02-01 08:18] LABS: GLUCOSE 126 MG/DL (70-104)
[2025-02-01 08:46] LABS: CHOL/HDL RATIO 2.4 (0.00-4.99); CHOLESTEROL 90 MG/DL (0-200); HDL CHOLESTEROL 37 MG/DL (35-60); LDL CHOLESTEROL 30 MG/DL (50-100); TRIGLYCERIDES 142 MG/DL (20-135)
[2025-02-01] MEDS: amLODIPine 5mg tablet PO SCH (08:53)
[2025-02-01] MEDS: aspirin 81mg, enteric-coated 1 TAB TABLET.DR PO SCH (08:54)
[2025-02-01] MEDS: cholecalciferol (vitamin D3) 1,000 unit (25mcg) tablet PO SCH (08:54)
[2025-02-01] MEDS: atorvastatin 20mg tablet PO SCH (08:54)
[2025-02-01] MEDS: famotidine 20mg tablet PO SCH (09:18)
[2025-02-01] MEDS: fenofibrate 145mg tablet PO SCH (09:18)
[2025-02-01] MEDS: folic acid 1mg tablet PO SCH (09:18)
[2025-02-01] MEDS ORDERED: PHO667C PO (10:18)
[2025-02-01] MEDS ORDERED: DULO30CA52 PO (10:19)
[2025-02-01] MEDS ORDERED: CARV3.122 PO (10:22)
[2025-02-01] MEDS: acetaminophen 325mg tablet PO PRN (11:21)
[2025-02-01] MEDS ORDERED: famotidine 20mg tablet PO SCH (12:25)
[2025-02-01] MEDS ORDERED: FURO-150 PO (13:20)
[2025-02-01] MEDS ORDERED: ISOS30TA84 PO (13:20)
[2025-02-01] MEDS ORDERED: CYAN100087 PO (13:34)
--- NOTE | 2025-02-01 14:25 | PROGRESS NOTE ---
Progress Note Cardiology Providers to CC ~ Subjective Subjective No more chest pain Objective Result Diagram: 02/01/25 0744 02/01/25 0744 Objective Normotensive Peak troponin was 166 (.166) Cardiac cath last night showed totally normal, hyperdynamic contractility with no regional abnrmalities. CAD and graft status was the same as in 2022. Grafts to the principal diagonal and the only OMB are occluded. These graft failures and HTN are probably responsible for her "enzyme leak" type II SD SHE DID NOT HAVE A STEMI. Problem\\Assessment\\Plan Additional Plan Plan: home today dialysis LUIS MARIANO DO Feb 01, 2025 14:25
[2025-02-01] MEDS ORDERED: isosorbide mononitrate 30mg tab.SR.24H PO SCH (20:00)
[2025-02-01] MEDS ORDERED: gabapentin 100mg capsule PO SCH (21:00)
== END 2025-02-01 17:23 | disposition home or self-care (01) | DRG 280 ==
LOC: ER 20:07 → PCU 3S 22:13
PROVIDERS: ADMIT Internal Medicine Cardiovascular Disease; ATTEND Internal Medicine Cardiovascular Disease
PROC: 4A023N7 Measurement of Cardiac Sampling and Pressure, Left Heart, Percutaneous Approach (ICD-10-PCS; principal; 2025-01-31)
PROC: B2111ZZ Fluoroscopy of Multiple Coronary Arteries using Low Osmolar Contrast (ICD-10-PCS; 2025-01-31)
PROC: B2151ZZ Fluoroscopy of Left Heart using Low Osmolar Contrast (ICD-10-PCS; 2025-01-31)
PROC: B2131ZZ Fluoroscopy of Multiple Coronary Artery Bypass Grafts using Low Osmolar Contrast (ICD-10-PCS; 2025-01-31)
DX: T82.898A Other specified complication of vascular prosthetic devices, implants and grafts, initial encounter (principal); N18.6 End stage renal disease; I21.A1 Myocardial infarction type 2; I13.2 Hypertensive heart and chronic kidney disease with heart failure and with stage 5 chronic kidney disease, or end stage renal disease; I24.9 Acute ischemic heart disease, unspecified; K21.9 Gastro-esophageal reflux disease without esophagitis; M79.7 Fibromyalgia; I25.10 Atherosclerotic heart disease of native coronary artery without angina pectoris; E11.22 Type 2 diabetes mellitus with diabetic chronic kidney disease; I50.9 Heart failure, unspecified; J44.9 Chronic obstructive pulmonary disease, unspecified; G47.30 Sleep apnea, unspecified; Y83.8 Other surgical procedures as the cause of abnormal reaction of the patient, or of later complication, without mention of misadventure at the time of the procedure; Y92.89 Other specified places as the place of occurrence of the external cause; Z88.2 Allergy status to sulfonamides; Z88.8 Allergy status to other drugs, medicaments and biological substances; Z88.6 Allergy status to analgesic agent; Z88.1 Allergy status to other antibiotic agents; Z91.010 Allergy to peanuts; Z95.1 Presence of aortocoronary bypass graft; Z99.2 Dependence on renal dialysis
CPT/HCPCS: 36415; 71045; 80048; 80053; 80061; 82948; 83880; 84484; 85025; 93005; 93459; 99152; 99153; 99285; A4615; A6258; C1725; C1769; C1894; C9606; G0378; J0360; J1644; J2003; J2250; J3010; J3490; Q9967